=== PATIENT | female | born 1990 | race African-American/Black ===

== ENCOUNTER 2017-12-31 21:42 | Inpatient (IN) | payer OTHER ==
[2017-12-31] MEDS ORDERED: Misoprostol 200 MCG TAB PR PRN (22:07)
[2017-12-31] MEDS ORDERED: HYDROcodone/Acetaminophen 5/325 mg Tablet PO PRN (22:07)
[2017-12-31] MEDS ORDERED: Ondansetron HCl/PF 4 MG/2 ML Vial IVP PRN (22:07)
[2017-12-31] MEDS ORDERED: Lidocaine 1% (PF) 30 ML VIAL SC PRN (22:07)
[2017-12-31] MEDS ORDERED: Methylergonovine 0.2 MG/ML VIAL IM PRN (22:07)
[2017-12-31] MEDS ORDERED: Diphenoxylate HCl/Atropine Tablet PO PRN (22:07)
[2017-12-31] MEDS ORDERED: Ibuprofen 800 MG TAB PO PRN (22:07)
[2017-12-31] MEDS ORDERED: Carboprost 250 MCG/ML AMP IM PRN (22:07)
[2017-12-31] MEDS ORDERED: NS / Oxytocin 40 units/1000ml 1,000 ML IV PRN (22:07)
[2017-12-31] MEDS: Lactated Ringer's 1,000 ML IV SCH (22:15)
[2017-12-31] MEDS ORDERED: NS w/ Oxytocin 10 units 500 ML IV SCH ×2 (22:15→22:30)
[2017-12-31 22:25] VITALS: BMI 48.6
[2017-12-31 23:28] LABS: Hemoglobin 10.9 g/dL (12.0-16.0); Mean Corpuscular HGB CONC 33.6 g/dL (32.0-36.0); Mean Corpuscular Hemoglobin 24.5 pg (27.0-31.0); Mean Corpuscular Volume 72.9 fL (78.0-98.0); Mean Platelet Volume 8.4 fL (7.4-10.4); Platelet Count 217 thou/uL (130-400); RBC Distribution Width 15.8 % (11.5-14.5); Red Blood Cell (RBC) Count 4.46 mill/uL (4.20-5.40); White Blood Cell (WBC) Count 7.4 thou/uL (4.8-10.8)
[2017-12-31 23:29] LABS: HBSAg Index 0.24 S/CO (0-0.99); Hep B Surf Ag Non-Reactive S/CO (NonReactive); Syphilis Antibody Nonreactive (Nonreactive); Syphilis Antibody Index 0.04 S/CO (<1.00 Non-Reactive)
[2018-01-01] MEDS: Misoprostol 100 MCG TAB VAG SCH ×5 (00:08→22:20)
[2018-01-01] MEDS: Lactated Ringer's 1,000 ML IV SCH ×2 (09:28→22:15)
[2018-01-01] MEDS: Butorphanol Tartrate 1 MG/ML VIAL SLOW IVP PRN ×3 (09:59→22:15)
[2018-01-02] MEDS: Butorphanol Tartrate 1 MG/ML VIAL SLOW IVP PRN ×4 (01:24→09:17)
[2018-01-02] MEDS: Misoprostol 100 MCG TAB VAG SCH ×5 (02:22→20:04)
[2018-01-02] MEDS: Lactated Ringer's 1,000 ML IV SCH ×2 (08:25→20:03)
[2018-01-02] MEDS ORDERED: Bicitra 30 ML UDCUP ONE (11:17)
[2018-01-02] MEDS ORDERED: CEFAZOLIN/Water 2 GM/20 ML SYRINGE ONE (11:17)
[2018-01-02] MEDS ORDERED: Ketorolac Tromethamine 30 MG/ML VIAL ONE ×2 (11:27→13:31)
[2018-01-02] MEDS ORDERED: PHENYLEPHRINE-NS 100 MCG/ML 10 ML SYRINGE ONE ×3 (11:27→14:39)
[2018-01-02] MEDS ORDERED: Ondansetron HCl/PF 4 MG/2 ML Vial ONE ×2 (11:27→13:31)
[2018-01-02] MEDS ORDERED: Morphine PF 1 MG/ML SYR ONE (13:30)
[2018-01-02] MEDS ORDERED: Oxytocin 10 UNITS/ML VIAL ONE (13:31)
[2018-01-02] MEDS ORDERED: Bupivacaine 0.75% W/DEXTROSE 8.25% 2 ML AMP ONE (13:31)
[2018-01-02] MEDS ORDERED: Lidocaine 1% PF 5 ML VIAL ONE ×2 (13:31→14:03)
[2018-01-02] MEDS ORDERED: Carboprost 250 MCG/ML AMP ONE ×2 (13:54)
[2018-01-02] MEDS ORDERED: Methylergonovine 0.2 MG/ML VIAL ONE (13:55)
[2018-01-02] MEDS ORDERED: Naloxone HCl 0.4 mg/ml Vial IV PRN (15:16)
[2018-01-02] MEDS ORDERED: Ketorolac Tromethamine 30 MG/ML VIAL IVP PRN ×2 (15:16→19:42)
[2018-01-02] MEDS ORDERED: Promethazine HCl 25 MG/ML VIAL IM PRN (15:16)
[2018-01-02] MEDS ORDERED: Meperidine HCl/PF 25 MG/ML VIAL SLOW IVP PRN (15:16)
[2018-01-02] MEDS ORDERED: Promethazine HCl 25 MG SUPP PR PRN (15:16)
[2018-01-02] MEDS ORDERED: Naloxone HCl 0.4 mg/ml Vial IVP PRN (15:16)
[2018-01-02] MEDS ORDERED: HYDROmorphone 2 MG/ML VIAL SLOW IVP PRN (15:16)
[2018-01-02] MEDS ORDERED: Eucerin (Mineral Oil/Petrolatum,White) 30 gm Jar TOP PRN (15:16)
[2018-01-02] MEDS ORDERED: diphenhydrAMINE 50 MG/ML VIAL IVP PRN (15:16)
[2018-01-02] MEDS ORDERED: Ondansetron HCl/PF 4 MG/2 ML Vial IVP PRN ×3 (15:16→19:22)
[2018-01-02] MEDS ORDERED: Communication Order-Pharmacy FS SCH (15:30)
[2018-01-02] MEDS ORDERED: Ketorolac Tromethamine 30 MG/ML VIAL IVP SCH (15:30)
[2018-01-02] MEDS ORDERED: NS / Oxytocin 40 units/1000ml 1,000 ML IV SCH (19:22)
[2018-01-02] MEDS ORDERED: Bisacodyl 10 MG SUPP PR PRN (19:22)
[2018-01-02] MEDS ORDERED: Lanolin Ointment 7 GM TUBE TOP PRN (19:22)
[2018-01-02] MEDS: Naloxone HCl 0.4 mg/ml Vial IVP PRN ×2 (20:11→23:47)
[2018-01-02] MEDS ORDERED: Ibuprofen 800 MG TAB PO SCH (22:00)
[2018-01-02] MEDS: Docusate Calcium (SURFAK) 240 MG CAP PO SCH (22:04)
[2018-01-02] MEDS: Ferrous Sulfate 325 MG TAB PO SCH (22:04)
[2018-01-02] MEDS: Simethicone Chewable 80 MG TAB PO PRN (23:47)
[2018-01-03] MEDS: Lactated Ringer's 1,000 ML IV SCH ×4 (00:21→21:45)
[2018-01-03] MEDS: HYDROcodone/Acetaminophen 5/325 mg Tablet PO PRN ×4 (02:55→18:00)
[2018-01-03] MEDS ORDERED: Sodium Chloride 0.9% 10 ML ONE (04:23)
[2018-01-03] MEDS: Naloxone HCl 0.4 mg/ml Vial IVP PRN (04:26)
[2018-01-03 05:18] LABS: Hemoglobin 9.6 g/dL (12.0-16.0); Mean Corpuscular HGB CONC 32.6 g/dL (32.0-36.0); Mean Corpuscular Hemoglobin 24.3 pg (27.0-31.0); Mean Corpuscular Volume 74.7 fL (78.0-98.0); Mean Platelet Volume 8.3 fL (7.4-10.4); Platelet Count 173 thou/uL (130-400); Red Blood Cell (RBC) Count 3.93 mill/uL (4.20-5.40)
[2018-01-03] MEDS: Ibuprofen 800 MG TAB PO SCH ×3 (05:35→21:33)
[2018-01-03] MEDS: Docusate Calcium (SURFAK) 240 MG CAP PO SCH ×2 (08:01→21:33)
[2018-01-03] MEDS: Prenatal Vitamin 1 TAB PO SCH (08:01)
[2018-01-03] MEDS: Simethicone Chewable 80 MG TAB PO PRN ×3 (08:01→21:33)
[2018-01-03] MEDS: Ferrous Sulfate 325 MG TAB PO SCH ×2 (08:01→21:33)
[2018-01-03] MEDS ORDERED: diphenhydrAMINE 25 MG CAP PO PRN (14:10)
[2018-01-04] MEDS: HYDROcodone/Acetaminophen 5/325 mg Tablet PO PRN ×2 (02:39→08:01)
[2018-01-04] MEDS: Ibuprofen 800 MG TAB PO SCH ×2 (05:16→13:23)
[2018-01-04] MEDS: Ferrous Sulfate 325 MG TAB PO SCH (08:00)
[2018-01-04] MEDS: Prenatal Vitamin 1 TAB PO SCH (08:00)
[2018-01-04] MEDS: Docusate Calcium (SURFAK) 240 MG CAP PO SCH (08:00)
[2018-01-04] MEDS: Simethicone Chewable 80 MG TAB PO PRN (08:01)
[2018-01-04 09:11] VITALS: TEMP 98.1
[2018-01-04] MEDS ORDERED: Measles/Mumps/Rubella 10 MCG/0.5 ML VIAL SC ONE (12:30)
[2018-01-04 13:14] VITALS: BP 135/75
== END 2018-01-04 13:45 | disposition home or self-care (01) | DRG 765 ==
LOC: L&D 21:42 → 3SW 01-02 17:52
PROVIDERS: ADMIT Family Medicine; ATTEND Family Medicine
PROC: 3E0P7VZ Introduction of Hormone into Female Reproductive, Via Natural or Artificial Opening (ICD-10-PCS; principal; 2017-12-31)
PROC: 10D00Z1 Extraction of Products of Conception, Low, Open Approach (ICD-10-PCS; 2018-01-02)
DX: O99.214 Obesity complicating childbirth (principal); Z68.42 Body mass index [BMI] 45.0-49.9, adult; Z37.0 Single live birth; E66.9 Obesity, unspecified; Z3A.40 40 weeks gestation of pregnancy; Z23 Encounter for immunization; O61.0 Failed medical induction of labor
CPT/HCPCS: 36415; 51702; 85027; 86780; 86850; 86900; 86901; 87340; 90707; A4216; J0595; J1885; J2001; J2210; J2274; J2310; J2405; J2590; J3490

== ENCOUNTER 2019-11-13 10:18 | Emergency (ER) | payer OTHER ==
[2019-11-14 12:32] LABS: SARS-CoV-2 MS2 Positive; SARS-CoV-2 N Gene Negative; SARS-CoV-2 S Gene Negative; SARS-CoV-2 orf1ab Negative
== END 2019-11-13 10:48 | disposition home or self-care (01) ==
LOC: ERS 10:18
DX: Z20.828 Contact with and (suspected) exposure to other viral communicable diseases (principal); Z87.891 Personal history of nicotine dependence
CPT/HCPCS: 87635; 99283; U0003

== ENCOUNTER 2020-02-16 16:10 | Emergency (ER) | payer OTHER ==
[2020-02-16] MEDS ORDERED: Acetaminophen 500 MG TAB ONE (17:00)
[2020-02-17 14:22] LABS: SARS-CoV-2 MS2 Positive; SARS-CoV-2 N Gene Negative; SARS-CoV-2 S Gene Negative; SARS-CoV-2 by NAA Not Detected (NotDetected); SARS-CoV-2 orf1ab Negative
== END 2020-02-16 17:42 | disposition home or self-care (01) ==
LOC: ERS 16:10
DX: J02.9 Acute pharyngitis, unspecified (principal); Z20.828 Contact with and (suspected) exposure to other viral communicable diseases
CPT/HCPCS: 87635; 99283; U0003